=== PATIENT | female | born 2000 | race Two or more races ===

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

== ENCOUNTER 2024-02-08 20:06 | Inpatient (IN) | payer MEDICAID, OTHER ==
[~2024-02-08] VITALS: Ht 147.3 cm; Wt 137.0 kg
[2024-02-08] MEDS: ACETAMINOPHEN 325 MG TAB PO ONE
[~2024-02-08 20:06] MED LIST: CEPH-509 PO
--- NOTE | 2024-02-08 20:19 | ED.PDOC ---
History of Present Illness HPI Comments 23-year-old female came to ER via EMS for chest pains. Patient is a , approximately 14 weeks . States for the past 4 days, she has been having flu-like symptoms, including chills, myalgia, weakness, congestion, cough, headaches, nausea, vomiting. Few hours ago, seen chest pains as well, substernal, sharp, tender to the touch, nonradiating, and worsens with deep breathing. She denies any vaginal bleeding or abdominal cramps. Tachycardic on scene at the 140s Chief Complaint: Chest pain Time Seen by MD: 20:19 Reviewed Notes: Nurses Notes Allergies: Coded Allergies: NO KNOWN ALLERGIES (Unverified , 09/14/21) Home Meds Active Scripts Cephalexin (KEFLEX 500) 500 Mg Cap, 1 CAP PO TID for 5 Days, #20 CAP Prov:CAIT HUNT 09/14/21 Information Source: Patient, Emergency Med Personnel Mode of Arrival: EMS Timing: Hours Duration: Intermittent Prehospital treatment: None Past Medical History PAST MEDICAL HISTORY: Denies Surgical History: Denies all surgeries CLINICAL OPERATIONS MANAGER History: Denies all CLINICAL OPERATIONS MANAGER Hx Family History Family History: Reviewed,noncontributory to illness Social History Smoker: Non-Smoker Alcohol: Denies ETOH Use Drugs: Denies Drug Use Lives In: Home Constitutional: reports: fatigue, weakness; denies: chills, diaphoresis, fever, malaise, sweats, others EENTM: reports: nose congestion; denies: blurred vision, double vision, ear bleeding, ear discharge, ear drainage, ear pain, ear ringing, eye pain, eye redness, hearing loss, mouth pain, mouth swelling, nasal discharge, nose bleeding, nose pain, photophobia, tearing, throat pain, throat swelling, voice changes, others Respiratory: reports: cough; denies: hemoptysis, orthopnea, SOB at rest, shortness of breath, SOB with excertion, stridor, wheezing, others Cardiovascular: reports: chest pain; denies: dizzy spells, diaphoresis, Dyspnea on exertion, edema, irregular heart beat, left arm pain, lightheadedness, palpitations, PND, syncope, others Gastrointestinal: reports: nausea, vomiting; denies: abdomen distended, abdominal pain, blood streaked bowels, constipated, diarrhea, dysphagia, difficulty swallowing, hematemesis, melena, poor appetite, poor fluid intake, rectal bleeding, rectal pain, others Genitourinary: denies: abnormal vagina bleeding, burning, dyspareunia, dysuria, flank pain, frequency, hematuria, incontinence, pain, , vagina discharge, urgency, others Neurological: reports: dizziness, headache; denies: fainting, left sided numbness, left sided weakness, numbness, paresthesia, pre-existing deficit, right sided numbness, right sided weakness, seizure, speech problems, tingling, tremors, weakness, others Musculoskeletal: denies: back pain, gout, joint pain, joint swelling, muscle pain, muscle stiffness, neck pain, others Integumetry: denies: bruises, change in color, change in hair/nails, dryness, laceration, lesions, lumps, rash, wounds, others Allergic/Immunocompromised: denies: Difficulty Healing, Frequent Infections, Hives, Itching, others Hematologic/Lymphatic: denies: anemia, blood clots, easy bleeding, easy bruising, swollen glands, others Endocrine: denies: excessive hunger, excessive sweating, excessive thirst, excessive urination, flushing, intolerance to cold, intolerance to heat, unexplained weight gain, unexplained weight loss, others Psychiatric: denies: anxiety, bipolar disorder, depression, hopeless, panic disorder, schizophrenia, sleepless, suicidal, others Physical Exam General Appearance: No Apparent Distress, Normal HEENT: Normal ENT Inspection, Pharynx Normal, TMs Normal Neck: Full Range of Motion, Non-Tender, Normal, Normal Inspection Respiratory: Chest Non-Tender, Lungs Clear, No Accessory Muscle Use, No Respiratory Distress, Normal Breath Sounds Cardiovascular: No Edema, No JVD, No Murmur, No Gallop, Normal Peripheral Pulses, Regular Rate/Rhythm Breast Exam: Deferred Gastrointestinal: No Organomegaly, Non Tender, No Pulsatile Mass, Normal Bowel Sounds, Soft Genitalia: Deferred Pelvic: Deferred Rectal: Deferred Extremities: No calf tenderness, Normal capillary refill, Normal inspection, Normal range of motion, Non-tender, No pedal edema Musculoskeletal : Apperance: Normal Neurologic: Alert, medical reimbursement specialist II-XII nml as Tested, No Motor Deficits, Normal Affect, Normal Mood, No Sensory Deficits Cerebellar Function: Normal Reflexes: Normal Skin: Dry, Normal Color, Warm Lymphatic: No Adenopathy Was a procedure done? Was a procedure done?: No EKG EKG : Pulse Rate (adult): 110 Cardiac Rhythm: ST Differential Dx Considerations may include: Anemia, electrolyte imbalance, , influenza, COVID-19, gastritis, musculoskeletal pain, costochondritis X-Ray, Labs, Meds, VS Vital Signs Date Time Temp Pulse Resp B/P (MAP) Pulse Ox O2 Delivery O2 Flow Rate FiO2 02/08/24 20:22 110 02/08/24 20:07 110 02/08/24 20:06 99.2 107 18 119/84 (96) 100 Lab Test 02/08/24 20:35 Range/Units White Blood Count 13.4 H 4.4-10.8 10^3/uL Red Blood Count 4.43 4.0-5.20 10^6/uL Hemoglobin 12.5 12.2-16.2 g/dL Hematocrit 36.4 36.0-46.0 % Mean Corpuscular Volume 82.3 80.0-100.0 fL Mean Corpuscular Hemoglobin 28.2 28.0-32.0 pg Mean Corpuscular Hemoglobin Concent 34.3 32.0-36.0 g/dL Red Cell Distribution Width 16.3 H 11.8-14.3 % Platelet Count 334 140-450 10^3/uL Mean Platelet Volume 8.5 6.9-10.8 fL Neutrophils (%) (Auto) 76.4 37.0-80.0 % Lymphocytes (%) (Auto) 14.0 10.0-50.0 % Monocytes (%) (Auto) 6.7 0.0-12.0 % Eosinophils (%) (Auto) 2.6 0.0-7.0 % Basophils (%) (Auto) 0.3 0.0-2.0 % Neutrophils # (Auto) 10.3 H 1.6-8.6 10 ^3/uL Lymphocytes # (Auto) 1.9 0.4-5.4 10 ^3/uL Monocytes # (Auto) 0.9 0-1.3 10 ^3/uL Eosinophils # (Auto) 0.3 0-0.8 10 ^3/uL Basophils # (Auto) 0 0-0.2 10 ^3/uL Nucleated Red Blood Cells 0.0 % Prothrombin Time 10.3 9.3-11.8 sec Prothrombin Time INR 0.97 0.9-1.15 D-Dimer, Quantitative 0.90 H 0.0-0.49 mg/L FEU Sodium Level 138 136-145 mmol/L Potassium Level 3.7 3.5-5.1 mmol/L Chloride Level 105 98-107 mmol/L Carbon Dioxide Level 22 20-31 mmol/L Anion Gap 11 5-15 Blood Urea Nitrogen 8 L 9-23 mg/dL Creatinine 0.61 0.550-1.02 mg/dL Glomerular Filtration Rate Calc 130 >90 mL/min BUN/Creatinine Ratio 13.1 10.0-20.0 Serum Glucose 117 H 74-106 mg/dL Calcium Level 10.3 8.7-10.4 mg/dL Magnesium Level 1.7 1.6-2.6 mg/dL Total Bilirubin 0.2 0.2-1.0 mg/dL Aspartate Amino Transferase (AST) 20 13-40 U/L Alanine Aminotransferase (ALT) 18 7-40 U/L Alkaline Phosphatase 76 46-116 U/L Total Protein 7.7 5.7-8.2 g/dL Albumin 4.6 3.2-4.8 g/dL Beta HCG, Quantitative 50666.6 H 1.5-4.2 mIU/mL Time of 1ST Reevaluation: 20:14 Reevaluation 1ST: Unchanged Time of 2ND Reevaluation: 22:13 Reevaluation 2ND: Unchanged Patient Education/Counseling: Diagnosis, Treatment Family Education/Counseling: No Family Present Departure 1 Departure Time of Disposition: 22:13 (Patient with , dyspnea and tachycardia. I suspect possible PE. I ordered VQ scan, will admit for further workup) Impression: Primary Impression: 14 weeks gestation of Additional Impressions: Dyspnea and respiratory abnormalities Sinus tachycardia Disposition: 09 ADMITTED INPATIENT Condition: Guarded Critical Care Note Critical Care Time?: No Stability Stability form required: No Heart Score Heart Score: Heart Score Response (Comments) Value History N/A 0 EKG N/A 0 Age N/A 0 Risk Factors N/A 0 Troponin N/A 0 Total 0 I personally scribed for ADIEL JORDAN MD ([email or web address]) on 02/08/24 at 20:19. Electronically submitted by Huy Su ([email or web address]). I personally scribed for ADIEL JORDAN MD ([email or web address]) on 02/08/24 at 20:22. Elec tronically submitted by Huy Su ([email or web address]). ADIEL JORDAN MD Feb 08, 2024 20:19
[2024-02-08 21:20] LABS: Basophils # (auto) 0 10 ^3/uL (0-0.2); Basophils % (auto) 0.3 % (0.0-2.0); Eosinophils # (auto) 0.3 10 ^3/uL (0-0.8); Eosinophils % (auto) 2.6 % (0.0-7.0); Hematocrit 36.4 % (36.0-46.0); Hemoglobin 12.5 g/dL (12.2-16.2); Lymphocytes # (auto) 1.9 10 ^3/uL (0.4-5.4); Mean Corpuscular Hemoglobin 28.2 pg (28.0-32.0); Mean Corpuscular Hgb Conc. 34.3 g/dL (32.0-36.0); Mean Corpuscular Volume 82.3 fL (80.0-100.0); Monocytes # (auto) 0.9 10 ^3/uL (0-1.3); Monocytes % (auto) 6.7 % (0.0-12.0); Neutrophils # (auto) 10.3 10 ^3/uL (1.6-8.6); Neutrophils % (auto) 76.4 % (37.0-80.0); Platelet Count (auto) 334 10^3/uL (140-450); Red Blood Cells 4.43 10^6/uL (4.0-5.20); Red Cell Distribution Width 16.3 % (11.8-14.3); White Blood Cell 13.4 10^3/uL (4.4-10.8)
[2024-02-08 21:29] LABS: Alanine Aminotransferase 18 U/L (7-40); Albumin 4.6 g/dL (3.2-4.8); Alkaline Phosphatase 76 U/L (46-116); Anion Gap 11 (5-15); Aspartate Aminotransferase 20 U/L (13-40); BUN/Creatinine Ratio 13.1 (10.0-20.0); Calcium 10.3 mg/dL (8.7-10.4); Carbon Dioxide 22 mmol/L (20-31); Chloride 105 mmol/L (98-107); Magnesium 1.7 mg/dL (1.6-2.6); Potassium 3.7 mmol/L (3.5-5.1); Sodium 138 mmol/L (136-145)
[2024-02-08 21:30] LABS: Total Protein 7.7 g/dL (5.7-8.2)
[2024-02-08 21:33] LABS: Bilirubin, Total 0.2 mg/dL (0.2-1.0); Blood Urea Nitrogen 8 mg/dL (9-23); Glucose 117 mg/dL (74-106)
[2024-02-08 21:36] LABS: INR 0.97 (0.9-1.15); Prothrombin Time 10.3 sec (9.3-11.8)
[2024-02-08 23:52] VITALS: PULSE 109; RESP 20; O2SAT 100
[2024-02-09] MEDS: SODIUM CHLORIDE 0.9% 1,000 ML IV ONE
[2024-02-09] MEDS ORDERED: NITROGLYCERIN 0.4 MG SL TAB SL PRN (01:15)
[2024-02-09] MEDS ORDERED: MORPHINE SULFATE INJ 2 MG/ml SYRG IV PRN (01:15)
--- NOTE | 2024-02-09 01:17 | DVHHPRES ---
History of Present Illness Resident Creating Document: ASHLEY CASSIDY RESIDENT History of Present Illness This is a 23-year-old female with past medical history of migraine presented to the ED with a chief complaint of chest pain and shortness of Breath for 2 hours prior to this admission. States that she has been suffering from flu for last couple of days and today she suddenly noticed chest pain which is sharp in nature located in the central of the chest, continuous, 8/10 and aggravated during deep breathing and associated with shortness of Breath, dizziness and headache. The patient is approximately 14 weeks and following with her lead mechanic and still have the vomiting 2 times a day. She also mentioned cough with productive whitish sputum for last 4 days. Patient denies fever, chills, abdominal pain ,dysuria, hematuria, vaginal bleeding or discharge. Past Medical History Migraine Past Surgical History None Family History None Past Social History Lives with family Nonsmoker, nonalcoholic and never used any drugs. Review of Systems Constitutional: No: Fever, Chills, Sweats, Weakness, Malaise, Other Eyes: No: Pain, Vision change, Conjunctivae inflammation, Eyelid inflammation, Other, Redness ENT: Nose congestion; No: Ear pain, Ear discharge, Nose pain, Nose discharge, Mouth pain, Mouth swelling, Throat pain, Throat swelling, Other Respiratory: Cough, Shortness of breath, Sputum; No: Dry, SOB with excertion, Wheezing, Hemoptysis, Pleuritic Pain, Wheezing, Other Cardiovascular: Chest Pain, Lt Headedness; No: Palpitations, Orthopnea, Paroxysmal Noc. Dyspnea, Edema, Other Gastrointestinal: Vomiting; No: Nausea, Abdominal Pain, Diarrhea, Constipation, Melena, Hematochezia, Other Genitourinary: No Dysuria, No Frequency, No Incontinence, No Hematuria, No Retention, No Other Musculoskeletal: No: other, neck pain, shoulder pain, arm pain, back pain, hand pain, leg pain, foot pain Skin: No: Rash, Lesions, Jaundice, Bruising, Other Neurological: No: Weakness, Numbness, Incoordination, Change in speech, Confusion, Seizures, Other Allergies: Coded Allergies: NO KNOWN ALLERGIES (Unverified , 09/14/21) Exam Vital Signs Vital Signs Date Time Temp Pulse Resp B/P (MAP) Pulse Ox O2 Delivery O2 Flow Rate FiO2 02/08/24 23:52 97.9 109 20 136/92 (107) 100 97.9 02/08/24 23:52 Room Air* 0 21 Exam Physical examination: General Appearance: Alert, Oriented X3, Cooperative, No acute distress HEENT: Atraumatic, PERRLA, EOMI, Mucous membrane moist/pink Respiratory: Clear to auscultation, Normal air movement Cardiovascular: Regular rate, Normal S1, Normal S2, No murmurs, no chest wall tenderness Abdominal: Normal bowel sounds, Soft, No tenderness, No hepatospenomegaly, No masses Extremities: No clubbing, No cyanosis, No edema, Normal pulses, No tenderness/swelling Skin: No rashes, No breakdown, No significant lesion Neuro: Normal gait, Normal speech, Strength at 5/5 X4 ext, Normal tone, Sensation intact, grossly intact cranial nerves. Psych/Mental Status: Mental status NL, Mood NL Labs/Xrays Labs Test 02/08/24 20:35 Range/Units White Blood Count 13.4 H 4.4-10.8 10^3/uL Red Blood Count 4.43 4.0-5.20 10^6/uL Hemoglobin 12.5 12.2-16.2 g/dL Hematocrit 36.4 36.0-46.0 % Mean Corpuscular Volume 82.3 80.0-100.0 fL Mean Corpuscular Hemoglobin 28.2 28.0-32.0 pg Mean Corpuscular Hemoglobin Concent 34.3 32.0-36.0 g/dL Red Cell Distribution Width 16.3 H 11.8-14.3 % Platelet Count 334 140-450 10^3/uL Mean Platelet Volume 8.5 6.9-10.8 fL Neutrophils (%) (Auto) 76.4 37.0-80.0 % Lymphocytes (%) (Auto) 14.0 10.0-50.0 % Monocytes (%) (Auto) 6.7 0.0-12.0 % Eosinophils (%) (Auto) 2.6 0.0-7.0 % Basophils (%) (Auto) 0.3 0.0-2.0 % Neutrophils # (Auto) 10.3 H 1.6-8.6 10 ^3/uL Lymphocytes # (Auto) 1.9 0.4-5.4 10 ^3/uL Monocytes # (Auto) 0.9 0-1.3 10 ^3/uL Eosinophils # (Auto) 0.3 0-0.8 10 ^3/uL Basophils # (Auto) 0 0-0.2 10 ^3/uL Nucleated Red Blood Cells 0.0 % Prothrombin Time 10.3 9.3-11.8 sec Prothrombin Time INR 0.97 0.9-1.15 D-Dimer, Quantitative 0.90 H 0.0-0.49 mg/L FEU Sodium Level 138 136-145 mmol/L Potassium Level 3.7 3.5-5.1 mmol/L Chloride Level 105 98-107 mmol/L Carbon Dioxide Level 22 20-31 mmol/L Anion Gap 11 5-15 Blood Urea Nitrogen 8 L 9-23 mg/dL Creatinine 0.61 0.550-1.02 mg/dL Glomerular Filtration Rate Calc 130 >90 mL/min BUN/Creatinine Ratio 13.1 10.0-20.0 Serum Glucose 117 H 74-106 mg/dL Calcium Level 10.3 8.7-10.4 mg/dL Magnesium Level 1.7 1.6-2.6 mg/dL Total Bilirubin 0.2 0.2-1.0 mg/dL Aspartate Amino Transferase (AST) 20 13-40 U/L Alanine Aminotransferase (ALT) 18 7-40 U/L Alkaline Phosphatase 76 46-116 U/L Total Protein 7.7 5.7-8.2 g/dL Albumin 4.6 3.2-4.8 g/dL Beta HCG, Quantitative 99030.6 H 1.5-4.2 mIU/mL Assessment/Plan Assessment/Plan Assessment and plan: # Acute chest pain and shortness of breath, rule out PE/ infectious etiology - Admitted the patient in telemetry - EKG revealed sinus tachycardia - Troponin unremarkable - D-dimer is elevated - Ordered chest xray and NM V/Q scan, U/A # Nausea and vomiting in - the patient was given 1 L IV bolus followed by IV normal saline at 75 mL/hours - IV ondansetron 4 mg q.4 p.r.n. - Obstetrical ultrasound revealed single intrauterine in cephalic position Goal of care discussed with the patient for more than 20 minutes full code Plan discussed with Dr. Marinelli Plan discussed with: Patient, Other My Orders Orders - ASHLEY CASSIDY RESIDENT Procedure Category Date Status Time Admit ADMIT 02/09/24 Transmitted 01:11 Nitroglycerin PHA 02/09/24 Transmitted Sublingual (Ntrostat 01:15 Morphine Sulfate PHA 02/09/24 Transmitted Injection 01:15 Oxygen By Nasal RT 02/09/24 Transmitted Cannula 01:11 Stat Ekg For Chest [facility] 02/09/24 Transmitted Pain 01:11 Notify Md Of Changes [facility] 02/09/24 Transmitted From Base 01:11 Deli Manager For [facility] 02/09/24 Transmitted 24 Hours 01:11 Emergency Dysrhythmia [facility] 02/09/24 Transmitted Protocol 01:11 Rhythm Strips Once [facility] 02/09/24 Transmitted Every Shift 01:11 Urinalysis LAB 02/09/24 Transmitted 01:11 Troponin-I Hs LAB 02/09/24 Transmitted 01:11 Troponin-I Hs LAB 02/09/24 Transmitted 02:11 Drug Screen LAB 02/09/24 Transmitted 01:11 Chest Xray 1 View XY 02/09/24 Transmitted 01:11 Obsterical Limited US 02/09/24 Transmitted 01:11 Thyroid Stimulating LAB 02/09/24 Transmitted Hormone 01:11 Hemoglobin A1c LAB 02/09/24 Transmitted 01:11 Date of Service: Feb 09, 2024 Billing Provider: GRETEL MARINELLI MD Common Visit Codes: [id number] INP/OBS CARE (HIGH) KHANHASHLEY RESIDENT Feb 09, 2024 01:17 GRETEL MARINELLI MD Feb 12, 2024 19:54
--- NOTE | 2024-02-09 01:55 | DVH ---
OB ULTRASOUND <14 WEEKS: HISTORY: 14 weeks TECHNIQUE: Multiple real-time grayscale sonographic images of the pelvis with duplex Doppler color f low, spectral and M-mode analysis. TRANSDUCERS: Transabdominal Findings/ IMPRESSION: Single intrauterine in cephalic position. Placenta is posterior. heart rate of 148 beats per minute. The cervix measures 3.2 cm and appears closed. MVP of 3.5 cm.
[2024-02-09] MEDS: SODIUM CHLORIDE 0.9% 1,000 ML IV SCH (02:00)
[2024-02-09] MEDS ORDERED: ONDANSETRON HCL 4 MG/2 ML VIAL IV PRN (02:00)
--- NOTE | 2024-02-09 06:14 | ECG ---
[facility] Test Date: 2024-02-08 Test Time: 20:07:39 Pat Name: JAVIER NAVA Department: ER Room: [address] [place] [address] Gender: F Floor Specialist: ERIC : 2000 Requested By: ADIEL JORDAN Order Number: [id number] Reading MD: Hung Suárez Measurements Intervals [place] Rate: 110 P: 31 [place]: 113 QRS: 7 QRSD: 79 T: -13 QT: 340 QTc: 461 Interpretive Statements Sinus tachycardia Electronically Signed On 02-09-2024 12:09:43 PST by Hung Suárez Please click the below link to view image of tracing.
[2024-02-09 06:38] LABS: Urine Bacteria FEW /hpf (None Seen); Urine Blood Negative /uL (Negative); Urine Clarity Turbid (Clear); Urine Color Light-Yellow (Yellow); Urine Mucus FEW (None Seen); Urine Protein, UAD Negative (Negative); Urine Specific Gravity 1.018 (1.001-1.035); Urine Squamous Epithelial Cell MOD /hpf (<5); Urine Urobilinogen Normal (Negative); Urine WBC 7 /hpf (0 - 5)
[2024-02-09 06:55] VITALS: BP 122/70; PULSE 86; RESP 18; TEMP 97.5; O2SAT 99
[2024-02-09 06:59] LABS: Amphetamine Screen, Urine Neg (NEGATIVE); Barbiturate Scree,Urine Neg (NEGATIVE); Benzodiazephine Screen, Urine Neg (NEGATIVE); Cannabinoid Screen, Urine Neg (NEGATIVE); Cocaine Screen, Urine Neg (NEGATIVE); Opiate Scree,Urine Neg (NEGATIVE); Phencyclidine Screen, Urine Neg (NEGATIVE)
--- NOTE | 2024-02-09 07:55 | DVH ---
CHEST RADIOGRAPH Indication: shortness of breath Technique: Single frontal view of the chest was obtained Comparison: None FINDINGS: Lines and Tubes: None Lungs: No focal consolidation. Pleura: No effusion. No pneumothorax. Cardiomediastinal contours: Unremarkable Bones: No acute osseous abnormality. IMPRESSION: 1. No radiographic evidence of acute cardiopulmonary disease. HS:Y
[2024-02-09 08:55] LABS: Rapid Influenza A Positive (Negative); Rapid Influenza B Positive (Negative)
[2024-02-09 09:00] VITALS: BP 102/70; PULSE 95; RESP 17; TEMP 97.6; O2SAT 98
[2024-02-09] MEDS ORDERED: cefTRIAXone 1GM/50ML D5W 50 ML IV SCH (09:00)
[2024-02-09] MEDS ORDERED: ACETAMINOPHEN 325 MG TAB PO PRN (11:15)
[2024-02-09] MEDS ORDERED: ACETAMINOPHEN 325 MG TAB PO ONE (11:15)
--- NOTE | 2024-02-09 15:11 | DVHPN2 ---
Subjective pt seen at [facility] this morning c/o pain sternum on deep breath/coughing/denies any shortness of breath//is 14 weeks /this started after recent cold/urti Changes from previous H/P or p: No Changes Eyes: No Pain, No Vision change, No Conjunctivae inflammation, No Eyelid inflammation, No Other, No Redness ENT: No Ear pain, No Ear discharge, No Nose pain, No Nose discharge; Nose congestion; No Mouth pain, No Mouth swelling, No Throat pain, No Throat swelling, No Other Cardiovascular: Chest Pain; No Palpitations, No Orthopnea, No Paroxysmal Noc. Dyspnea, No Edema; Lt Headedness; No Other Respiratory: Cough; No Dry; Shortness of breath; No SOB with excertion, No Wheezing, No Hemoptysis, No Pleuritic Pain; Sputum; No Other Gastrointestinal: No Nausea; Vomiting; No Abdominal Pain, No Diarrhea, No Constipation, No Melena, No Hematochezia, No Other Genitourinary: No Dysuria, No Frequency, No Incontinence, No Hematuria, No Retention, No Other Musculoskeletal: No other, No neck pain, No shoulder pain, No arm pain, No back pain, No hand pain, No leg pain, No foot pain Skin: No Rash, No Lesions, No Jaundice, No Bruising, No Other Objective Vitals Vital Signs Date Time Temp Pulse Resp B/P (MAP) Pulse Ox O2 Delivery O2 Flow Rate FiO2 02/09/24 09:00 97.6 95 17 102/70 (81) 98 97.6 02/08/24 23:52 Room Air* 0 21 Intake/Output Intake and Output 02/09/24 07:00 Intake Total 1000 ml Balance 1000 ml Intake IV Total 1000 ml General Appearance: Alert, Oriented X3, Cooperative, No acute distress Lungs: Clear to auscultation, Normal air movement Cardiovascular: Regular rate, Normal S1, Normal S2 Abdomen: Normal bowel sounds, Soft, No tenderness, No hepatospenomegaly Musculoskeletal: Normal sensory function, Normal motor function Neuro: Normal gait, Normal speech, Strength at 5/5 X4 ext, Normal tone, S ensation intact, Cranial nerves 3-12 NL Laboratory Results Laboratory Tests 02/08/24 20:35 Chemistry Test 02/08/24 20:35 Albumin 4.6 g/dL (3.2-4.8) Calcium Level 10.3 mg/dL (8.7-10.4) Magnesium Level 1.7 mg/dL (1.6-2.6) Total Protein 7.7 g/dL (5.7-8.2) Coagulation Test 02/08/24 20:35 Prothrombin Time 10.3 sec (9.3-11.8) Prothrombin Time INR 0.97 (0.9-1.15) D-Dimer, Quantitative 0.90 mg/L FEU (0.0-0.49) H LFT Test 02/08/24 20:35 Alanine Aminotransferase (ALT) 18 U/L (7-40) Alkaline Phosphatase 76 U/L (46-116) Aspartate Amino Transferase (AST) 20 U/L (13-40) Total Bilirubin 0.2 mg/dL (0.2-1.0) HgA1c, TSH Test 02/08/24 20:35 Hemoglobin A1c 5.7 % A1C (<5.7) Thyroid Stimulating Hormone (TSH) 0.61 uIU/mL (0.55-4.78) Urinalysis Test 02/09/24 04:45 Urine Color Light-yellow (Yellow) Urine Clarity Turbid (Clear) H Urine pH 6.0 (5.0-9.0) Urine Specific [place] 1.018 (1.001-1.035) Urine Protein Negative (Negative) Urine Ketones 2+ (Negative) H Urine Blood Negative /uL (Negative) Urine Nitrite Negative (Negative) Urine Bilirubin Negative (Negative) Urine Urobilinogen Normal mg/dL (Negative) Urine Leukocyte Esterase Trace /uL (Negative) Urine RBC 1 /hpf (0 - 4) Urine WBC 7 /hpf (0 - 5) Urine Squamous Epithelial Cells Mod /hpf (<5) Urine Bacteria Few /hpf (None Seen) H Urine Mucus Few (None Seen) Urine Glucose Normal mg/dL (Normal) Assessment/Plan Assessment/Plan influenza a illness influenza b illness asking if can be transferred to [place] where her primary obgyn is- Plan discussed with: Patient, Other Date of Service: Feb 09, 2024 Billing Provider: GRETCHEN CARDOSO MD Common Visit Codes: [id number] INP/OBS CARE(MOD) GRETCHEN CARDOSO MD Feb 09, 2024 15:11
== END 2024-02-09 11:44 | disposition left against medical advice (07) | DRG 566 ==
LOC: ER 20:06 → EDBD 20:06 → TELE 02-09 01:11
PROVIDERS: ADMIT Internal Medicine; ATTEND Internal Medicine
DX: O99.512 Diseases of the respiratory system complicating pregnancy, second trimester (principal); J10.1 Influenza due to other identified influenza virus with other respiratory manifestations; O21.9 Vomiting of pregnancy, unspecified; Z3A.14 14 weeks gestation of pregnancy
CPT/HCPCS: 36415; 71045; 76815; 80053; 80307; 81001; 83036; 83735; 84443; 84484; 84702; 85025; 85379; 85610; 87804; 93005; G0378